=== PATIENT | female | born 1950 | race Caucasian/White ===

== ENCOUNTER 2025-02-26 23:42 | Emergency (ER) | payer MEDICARE ==
[2025-02-27] MEDS: Bacitracin Oint 1 GM U/D Packet TOP ONE (02:50)
== END 2025-02-27 02:51 | disposition home or self-care (01) ==
LOC: JP.ED 23:42
DX: S02.2XXA Fracture of nasal bones, initial encounter for closed fracture (principal); S01.81XA Laceration without foreign body of other part of head, initial encounter; W01.198A Fall on same level from slipping, tripping and stumbling with subsequent striking against other object, initial encounter; Y92.012 Bathroom of single-family (private) house as the place of occurrence of the external cause
CPT/HCPCS: 70450; 70486; 99283